=== PATIENT | male | born 1960 | race Caucasian/White ===

== ENCOUNTER 2018-07-04 14:47 | Emergency (ER) | payer BC ==
--- NOTE | 2018-07-04 15:47 | ED ---
Abdominal Pain/Male - HPI Summary HPI Summary: This pt is a 58 y/o male presenting to [facility] c/o bilateral lower abd pain for a couple of months now. Pt notes today he noticed his abd was bulging out. He has taken ibuprofen and used ice without relief. Denies fever, nausea, vomiting, chest pain. 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 He notes he also runs three times a week. Pt saw his PCP 3 weeks ago and was told he didn't have a hernia. Pt was given Sulfa by his PCP for infection in his abdomen. His PCP is also in the process of scheduling a scan for him. Currently his PCP is out of town. Denies any PMHx. Denies tobacco and drug use. Pt admits to occasional alcohol use. - History of Current Complaint Chief Complaint: EDEmain Stated Complaint: BULDGE ON RIGHT SIDE/POSS HERNIA PER PT Time Seen by Provider: 07/04/18 15:35 Hx Obtained From: Patient Onset/Duration: Lasting Weeks, Still Present Timing: Lasting Weeks Severity Currently: Moderate Pain Intensity: 0 Location: Other - lower abdomen Radiates: No Aggravating Factor(s): Nothing Alleviating Factor(s): Nothing Associated Signs And Symptoms: Negative: Fever, Chest Pain, Nausea, Vomiting - Allergies/Home Medications Allergies/Adverse Reactions: Allergies Allergy/AdvReac Type Severity Reaction Status Date / Time No Known Allergies Allergy Verified 07/04/18 15:01 Home Medications: Home Medications NK [No Home Medications Reported] 07/04/18 [History Confirmed 07/04/18] PMH/Surg Hx/FS Hx/Imm Hx Endocrine/Hematology History: Denies: Hx Diabetes Cardiovascular History: Denies: Hx Hypertension - Surgical History Surgery Procedure, Year, and Place: Knee surgery Infectious Disease History: No Infectious Disease History: Denies: Traveled Outside the [place] in Last 30 Days - Family History Known Family History: Positive: Respiratory Disease - emphysema, COPD - Social History Alcohol Use: Occasionally Substance Use Type: Reports: None Smoking Status (MU): Never Smoked Tobacco Review of Systems Negative: Fever, Chills Negative: Chest Pain Positive: Abdominal Pain. Negative: Vomiting, Nausea All Other Systems Reviewed And Are Negative: Yes Physical Exam - Summary Physical Exam Summary: VITAL SIGNS: Reviewed. GENERAL: Patient is a well-developed and nourished male who is lying comfortable in the stretcher. Patient is not in any acute respiratory distress. HEAD AND FACE: Normocephalic and atraumatic. EYES: PERRLA, EOMI x 2, No injected conjunctiva. EARS: Hearing grossly intact. Ear canals and tympanic membranes are WNL. MOUTH: Oropharynx within normal limits. NECK: Supple, trachea is midline, no adenopathy, no JVD. CHEST: Symmetric, no tenderness at palpation LUNGS: Clear to auscultation bilaterally. No wheezing or crackles. CVS: RRR, S1 and S2 present, no murmurs or gallops appreciated. ABDOMEN: Soft, mild tenderness in the RLQ. No signs of distention. Positive bowel sounds. No rebound no guarding, and no masses palpated. No abdominal bruit or pulsations. EXTREMITIES: FROM in all major joints, no edema, no cyanosis or clubbing. NEURO: Alert and oriented x 3. No acute neurological deficits. Speech is normal. SKIN: Dry and warm Triage Information Reviewed: Yes Vital Signs On Initial Exam: Initial Vitals Temp Pulse Resp BP Pulse Ox 98.2 F 71 20 150/89 98 07/04/18 14:59 07/04/18 14:59 07/04/18 14:59 07/04/18 14:59 07/04/18 14:59 Vital Signs Reviewed: Yes Diagnostics - Vital Signs Vital Signs Temp Pulse Resp BP Pulse Ox 07/04/18 14:59 98.2 F 71 20 150/89 98 - Laboratory Result Diagrams: 07/04/18 16:21 07/04/18 16:21 Lab Statement: Any lab studies that have been ordered have been reviewed, and results considered in the medical decision making process. Abdominal Pain Male Course/Dx - Course Assessment/Plan: Patient is a 58-year-old male who presents to the emergency department with chief complaint of right lower quadrant pain. Test results without any significant abnormality. Patient is a stable and he did not request any pain medication up to this point. The abdominal pelvic CT is still pending. Therefore, the patient be signed out to Dr. Mendez at shift change. He will follow-up the CT results and further disposition depending on the results. - Diagnoses Provider Diagnoses: Right sided abdominal pain Discharge - Sign-Out/Discharge Documenting (check all that apply): Sign-Out Patient Signing out patient TO: Yue Mendez - pending CT and dispo Patient Received Moderate/Deep Sedation with Procedure: No - Discharge Plan Condition: Stable Referrals: Tarun Alvarenga MD [Primary Care Provider] - - Attestation Statements Document Initiated by Scribe: Yes Documenting Scribe: Karine Ovalles Provider For Whom Scribe is Documenting (Include Credential): Andrey Duff MD Scribe Attestation: IKarine, scribed for Andrey Duff MD on 07/04/18 at 1849. Status of Scribe Document: Ready
[2018-07-04] MEDS ORDERED: NS 0.9% 1000 ML** 1,000 ML IV SCH (16:00)
[2018-07-04 16:31] LABS: ABS Basophils 0 10^3/ul (0-0.2); ABS Eosinophils 0.3 10^3/ul (0-0.6); ABS Lymphocytes 1.8 10^3/ul (1.0-4.8); ABS Monocytes 0.5 10^3/ul (0-0.8); ABS Neutrophils 2.7 10^3/ul (1.5-7.7); ABS Nucleated RBC 0 10^3/ul; Eosinophil % 5.1 %; Hematocrit 43 % (36-46); Hemoglobin 15.2 g/dL (14.0-18.0); Lymphocyte % 33.7 %; Mean Corpuscular HGB Conc 35 g/dL (31-36); Mean Corpuscular Hemoglobin 32 pg (27-31); Mean Corpuscular Volume 91 fL (80-94); Mean Platelet Volume 7.3 fL (7.4-10.4); Nucleated Red Blood Cells % 0.1; Platelet Count 203 10^3/uL (150-450); Red Blood Count 4.78 10^6 /uL (4.18-5.48); Red Cell Distribution Width 12 % (10.5-15); White Blood Count 5.2 10^3/uL (3.5-10.8)
[2018-07-04 16:48] LABS: Albumin 4.6 g/dL (3.2-5.2); Albumin/Globulin Ratio 1.8 (1-3); BUN/Creatinine Ratio 20.2 (8-20); C Reactive Protein 4.07 mg/L (<8.01); EGFR African American 99.7 (>60); EGFR Non-African American 82.4 (>60); Globulin 2.6 g/dL (2-4); Potassium 4.6 mmol/L (3.5-5.0); Total Bilirubin 0.7 mg/dL (0.2-1.0); Total Protein 7.2 g/dL (6.4-8.9)
[2018-07-04] MEDS ORDERED: Iohexol 300* (CONTRAST) 10 ML SDV IV ONE (16:55)
[2018-07-04 17:40] LABS: Urine Appearance Clear; Urine Bilirubin Negative (Negative); Urine Blood Negative (Negative); Urine Color Straw; Urine Glucose Negative (Negative); Urine Ketones Negative (Negative); Urine Nitrite Negative (Negative); Urine Protein Negative (Negative); Urine Specific Gravity 1.005 (1.010-1.030); Urine Urobilinogen Negative (Negative)
--- NOTE | 2018-07-04 19:12 | ED ---
Progress - Progress Note Progress Note: This patient was signed out from Dr. Duff to Dr. Mendez upon shift change, pending CT abd/pel. CT abd/pel reveals 1. Hepatic steatosis. 2. Cannot exclude mild colitis. Correlate with clinical information. Dr. Mendez has reviewed this radiology report. This patient will be discharged with dx of constipation. Patient understands and agrees with this plan. Course/Dx - Course Course Of Treatment: This patient was signed out from Dr. Duff to Dr. Mendez upon shift change, pending CT abd/pel. CT abd/pel reveals 1. Hepatic steatosis. 2. Cannot exclude mild colitis. Correlate with clinical information. Dr. Mendez has reviewed this radiology report. This patient will be discharged with dx of constipation. Patient understands and agrees with this plan. - Diagnoses Provider Diagnoses: Right sided abdominal pain, Constipation Discharge - Sign-Out/Discharge Documenting (check all that apply): Patient Departure - discharge Patient Received Moderate/Deep Sedation with Procedure: No - Discharge Plan Condition: Stable Disposition: HOME Patient Education Materials: Constipation (DC), Abdominal Pain (ED) Referrals: Tarun Alvarenga MD [Primary Care Provider] - 3 Days Additional Instructions: PLEASE RETURN TO THE ED TO IMMEDIATELY FOR WORSENING OR CONCERNING SYMPTOMS. - Attestation Statements Document Initiated by Scribe: Yes Documenting Scribe: Adair Swan Provider For Whom Scribe is Documenting (Include Credential): Yue Mendez MD Scribe Attestation: Adair Amato, scribed for Yue Mendez MD on 07/04/18 at 1932. Status of Scribe Document: Ready
[2018-07-04] MEDS ORDERED: Magnesium CITRATE* 300 ML BTL PO ONE (19:32)
[2018-07-04] MEDS ORDERED: Bisacodyl SUPP* 10 MG SUPP PR ONE (19:32)
[2018-07-04 20:01] VITALS: BP 131/76
== END 2018-07-04 20:00 | disposition home or self-care (01) ==
LOC: ED 14:47
DX: R10.31 Right lower quadrant pain (principal); K59.00 Constipation, unspecified; K76.0 Fatty (change of) liver, not elsewhere classified
CPT/HCPCS: 36415; 74177; 80053; 81003; 82550; 83605; 83690; 85025; 86140; 96360; 96361; 99283; A9270-GY; Q9967